=== PATIENT | female | born 1960 | race Caucasian/White ===

== ENCOUNTER 2021-09-23 06:33 | Day surgery (SDC) | payer BC, SELFPAY ==
[2021-09-19 14:11] VITALS: BMI 23.3
--- NOTE | 2021-09-22 13:25 | HO.ANESPROP2 ---
Documented by User: Chantell Griffin NP 09/22/21 13:27 HPI - Anesthesia Eval Consult details Narrative: 60yo F for Colonoscopy [facility] Past Medical History Medical History COVID-19 vaccine series completed Surgical History Surgical History H/O colonoscopy Social History Social History Are you a primary child adolescent care to a significant other at home: No Do you presently have visiting nurse or other home services: No Patient Tobacco Use Status: Former Tobacco user Quit Date: age 23 Tobacco use type: Cigarette Use of substances other than those prescribed or required for medical reasons: No Are you DNR?: No Advance Directives: No Advance Directives Information Provided: Yes (brochure mailed) Advance Directives on File: No Recently lost weight without trying: No Eating poorly because of decreased appetite: No Nutrition Risks: No Nutritional Risk Meds Allergies Allergy/AdvReac Type Severity Reaction Status Date / Time No Known Allergies Allergy Unverified 09/18/21 21:28 Home Medications Medication Instructions Recorded Confirmed Last Taken Type No Known Home Meds 09/19/21 09/19/21 Unknown History Exam Exam Date and Time: September 22, 2021 1325 Height,Weight and Vital Signs: Height 5 ft 3 in Weight 59.874 kg Assessment and Plan Assessment Anesthesia Assessment: Chart Reviewed Documented by User: Jeffery Silveira MD 09/23/21 07:38 [facility] Past Medical History Medical History COVID-19 vaccine series completed Family History Family history of problems with anesthesia: No Surgical History Surgical History H/O colonoscopy History of Problems with Anesthesia: No Social History Social History Are you a primary child adolescent care to a significant other at home: No Do you presently have visiting nurse or other home services: No Patient Tobacco Use Status: Former Tobacco user Quit Date: age 23 Tobacco use type: Cigarette Use of substances other than those prescribed or required for medical reasons: No Are you DNR?: No Advance Directives: No Advance Directives Information Provided: Yes (brochure mailed) Advance Directives on File: No Recently lost weight without trying: No Eating poorly because of decreased appetite: No Nutrition Risks: No Nutritional Risk Meds Allergies Allergy/AdvReac Type Severity Reaction Status Date / Time No Known Allergies Allergy Unverified 09/18/21 21:28 Home Medications Medication Instructions Recorded Confirmed Last Taken Type No Known Home Meds 09/19/21 09/19/21 Unknown History Exam Airway Mallampati Class: II TM Dist: >3cm Neck ROM: Full Loose/Missing/Broken Teeth: No Heart: rrr Lungs: clear Assessment and Plan Final Anesthetic Review Family History of Problems with Anesthesia: No History of Problems with Anesthesia: No NPO: Yes ASA Class: I Final Preanesthetic Review: No Changes in Pt Med Stat, Meds/Allgs Chart Reviewed, Consent Obtained/Reviewed and Anes Risks/Benef Reviewed Patient Risk: Low Procedure Risk: Low Anesthetic Plan Anesthetic Plan: MAC: Disposition: Standard PACU
[2021-09-23 06:56] VITALS: BP 105/43; PULSE 52; RESP 18; TEMP 36.8; O2SAT 98
[2021-09-23] MEDS: Lactated Ringers 1,000 ML 100 ML IVCONT (07:11)
[2021-09-23 09:08] VITALS: BP 105/53; PULSE 64; RESP 14; TEMP 35.9; O2SAT 98
--- NOTE | 2021-09-23 09:10 | P.BOP_ITS ---
Brief Operative Note Date of Service: 09/23/21 Pre-op diagnosis: Rectal bleeding Post-op diagnosis: other (Colon polyps) Procedure: [id number] to the cecum and TI with hot snare polypectomy, bx/removal of polyp, and placement of 2 Resolution clips Surgeon: Michael France Anesthesia: MAC Was an Residential Property [employer] used for this Procedure?: No Estimated blood loss (mL): 4.0 Pathology: other (A. Polyps at 30cm) Condition: stable Disposition: PACU
[2021-09-23] MEDS: ondansetron HCL 4 MG/2 ML VIAL IVPUSH (09:17)
[2021-09-23 09:23] VITALS: BP 101/65; PULSE 54; RESP 16; O2SAT 100
[2021-09-23 09:38] VITALS: BP 103/79; PULSE 56; RESP 16; TEMP 36.1; O2SAT 100
[2021-09-23 09:52] VITALS: BP 110/44; PULSE 49; RESP 16; O2SAT 100
--- NOTE | 2021-09-23 20:35 | OP_ITS ---
SURGEON: Michael France MD INDICATIONS: The patient presents for evaluation of hematochezia, and family history of colon cancer. Full consent has been obtained from her for this, including risks of bleeding and perforation. PREOPERATIVE DIAGNOSIS: POSTOPERATIVE DIAGNOSIS: PROCEDURE PERFORMED: Colonoscopy to the cecum and terminal ileum with hot snare polypectomy, placement of 2 resolution clips, and biopsy and removal of polyp. ESTIMATED BLOOD LOSS: COMPLICATIONS: ANESTHESIA: ASSISTANTS: SPECIMENS: DESCRIPTION OF PROCEDURE: The patient was placed in the left lateral decubitus position. The digital rectal exam revealed no abnormalities. The Olympus video pediatric colonoscope was entered into the rectum and advanced to the cecum with the assistance of abdominal wall pressure. Advancement past the sigmoid colon was difficult. Once in the cecum, I did identify normal-appearing cecal pouch with appendiceal orifice and a normal-appearing ileocecal valve. The terminal ileum was cannulated and appeared normal. The scope was withdrawn back in the colon. The entire cecum and ileocecal valve appeared normal. The scope was then slowly withdrawn assessing all mucosal surfaces carefully. Preparation was excellent. At 30 cm were 2 polyps. One was approximately 3 mm in size and was removed with a cold biopsy forceps completely. Just distal to that was what appeared to be an inflammatory polyp with some ulceration on the tip and approximately 8 mm in size. It was somewhat friable. This was removed completely with hot snare polypectomy and recovered by suction. Both polyps were placed in the same container. However, the polypectomy site from the hot snare had some persistent oozing which was treated with 2 resolution clips. Each were deployed in good position with good hemostasis. The area was irrigated and observed for at least 5 minutes and there was no further bleeding noted. Of note, this was a difficult area in the sigmoid colon and she was uncomfortable during the procedure in that section. I did not visualize any other polyps, colitis, nor angiodysplasia. In the rectum, scope was retroflexed visualizing some small internal hemorrhoids, but no other pathology. The rectal mucosa appeared normal. The scope was straightened and withdrawn from the patient. She tolerated the procedure well and was returned to recovery area in stable condition. IMPRESSION: 1. Colon polyps. 2. Internal hemorrhoids. PLAN: The results of the pathology will be checked. Given her family history and today's findings, I would recommend a repeat colonoscopy in 3 years. She was advised not to use any aspirin and NSAIDs for at least 1 week. If things are stable, she will otherwise see me on a p.r.n. basis. MD MARY ELLEN Tenorio/ALIREZA / [id number] MTDD
== END 2021-09-23 10:28 | disposition home or self-care (01) ==
PROVIDERS: PCP Internal Medicine; Visit Provider Internal Medicine
PROC: 0DJD8ZZ Inspection of Lower Intestinal Tract, Via Natural or Artificial Opening Endoscopic (ICD-10-PCS; CPT 45378; principal; 2021-09-23 07:30)
DX: K62.5 Hemorrhage of anus and rectum (principal); Z80.0 Family history of malignant neoplasm of digestive organs; K63.5 Polyp of colon; K64.8 Other hemorrhoids; Z87.891 Personal history of nicotine dependence
CPT/HCPCS: 45385; 45380; 88305; J2405